=== PATIENT | male | born 1980 | race Caucasian/White ===

== ENCOUNTER 2018-10-07 11:55 | Emergency (ER) | payer BC ==
[~2018-10-07] VITALS: Ht 172.7 cm; Wt 81.6 kg
[~2018-10-07 11:55] MED LIST: ALPR1TAB2; GABA300C11; HYDR-3546
[2018-10-07 12:16] VITALS: BP 142/85
== END 2018-10-07 17:52 | disposition home or self-care (01) ==
LOC: ER 12:06
DX: S22.32XA Fracture of one rib, left side, initial encounter for closed fracture (principal); Z88.8 Allergy status to other drugs, medicaments and biological substances; W19.XXXA Unspecified fall, initial encounter; Y93.89 Activity, other specified; Y99.8 Other external cause status; Y92.89 Other specified places as the place of occurrence of the external cause
CPT/HCPCS: 71101

== ENCOUNTER 2021-10-09 16:17 | Emergency (ER) | payer BC ==
[~2021-10-09] VITALS: Ht 170.2 cm; Wt 83.9 kg
[~2021-10-09 16:17] MED LIST changes: -HYDR-3546; +HYDR-3547
[2021-10-09 16:50] VITALS: BP 139/92
== END 2021-10-09 19:42 | disposition home or self-care (01) ==
LOC: ER 16:17
DX: S46.912A Strain of unspecified muscle, fascia and tendon at shoulder and upper arm level, left arm, initial encounter (principal); S29.9XXA Unspecified injury of thorax, initial encounter; V28.4XXA Motorcycle driver injured in noncollision transport accident in traffic accident, initial encounter; Y93.89 Activity, other specified; Y92.89 Other specified places as the place of occurrence of the external cause; Y99.8 Other external cause status
CPT/HCPCS: 71046; 73030

== ENCOUNTER 2023-12-29 18:44 | Emergency (ER) | payer BC, OTHER ==
[~2023-12-29] VITALS: Ht 170.2 cm; Wt 80.7 kg
[~2023-12-29 18:44] MED LIST changes: +GABA-1254; -GABA300C11
[2023-12-29] MEDS: IPRATROPIUM BROM 0.5 MG/2.5ML INH SOL NEB ONE (20:02)
[2023-12-29] MEDS: ALBUTEROL SULF 2.5 MG/0.5ML(0.5%) NEB SOLN NEB ONE (20:02)
[2023-12-29] MEDS ORDERED: PRED20TA2 PO (20:29)
[2023-12-29] MEDS ORDERED: BENZ200C64 PO (20:29)
[2023-12-29] MEDS ORDERED: AZITTAB PO (20:29)
[2023-12-29] MEDS ORDERED: ALBUAER3 IN (20:29)
[2023-12-29 20:30] VITALS: BP 120/82; TEMP 98.2; O2SAT 97
[2023-12-29] MEDS: DexAMETHasone SOD PHOS 10MG/1ML VIAL INJ IM ONE (20:46)
[2023-12-29 21:14] VITALS: PULSE 72; RESP 18
== END 2023-12-29 20:50 | disposition home or self-care (01) ==
LOC: ER 18:44
DX: J45.909 Unspecified asthma, uncomplicated (principal); R07.89 Other chest pain
CPT/HCPCS: 71045; 94640; 96372; 99283; J1100; J7644